=== PATIENT | female | born 1930 | race Caucasian/White ===

== ENCOUNTER 2016-11-06 12:13 | Observation (INO) | payer MEDICARE ==
--- NOTE | ~2016-11-06 | HP ---
History And Physical [id number] [place]. [address] NAME: ANAYELI AMOS : 34 STATUS : ADM Marilee PAT#: [id number] AGE: 85 ADM/REG DATE : 11/06/16 MR#: [id number] REPORT SERV DATE: 11/07/16 DICTATED BY: LITZY KINCAID DATE: 11/07/16 REPORT STATUS : Draft TRANSCRIBED BY: MODL DATE: 11/07/16 DATE OF ADMISSION: 11/06/2016 PRIMARY CONTRACT FORESTER: Dr. Oneil at [place], [place]. CHIEF COMPLAINT: Dizziness, feeling not well, and hypotension. HISTORY OF PRESENT ILLNESS: This is an 85-year-old female with history of paroxysmal atrial fibrillation, and hospitalizations in June of last year for a fall sustaining a cephalohematoma. The patient is on chronic Eliquis therapy, which was held at that time, but has been continued in the outpatient setting. The patient lives at home with a vet assistant, who comes 10 to 12 hours per day. This vet assistant is at the bedside, and helps provide some of the history of present illness. She went to check on the patient yesterday morning, waking her up from bed, and the patient complained of feeling "very dizzy." The caregiver checked her blood pressure and heart rate, and her blood pressure was low, and heart rate was high. She also states the patient was nauseated and diaphoretic, and states that "something just does not feel right." There was no chest pain or significant palpitations. The caregiver called the [facility] which was supposed to come later that day, and they recommended that she call EMS. EMS was called and they provided IV fluids en route to the hospital. Her blood pressure on the EMS arrival was 108/60, and heart rate of 76, atrial fibrillation. Fluid bolus was continued in the emergency department and the patient was started on some IV Cardizem, although this has been discontinued as the patient's heart rate has been in the 70s, atrial fibrillation. She was admitted then to our Atrial Fibrillation Observation Unit overnight. The patient's caregiver reports no other falls since June. The patient has reportedly been under the care of a Dr. Oneil in [place], [place]. Although, the patient's nephew who is her medical Power Of Head Mva Reactor Operator has expressed that he would like the patient to be established with a celery wrapper here in [place]. The patient had been on a beta-haley at the time of admission in June, but this has been discontinued. The caregiver at the bedside is unsure why, but we can presume it is from her dizziness or perhaps some bradycardia. The patient's caregiver states absolute compliance with the patient's Eliquis. The patient's recent medical history is also significant for an angioplasty to the right lower extremity with Dr. Krueger at [place] a couple weeks ago. The patient has significant leg and foot pain with ambulation and this prevents her from getting around a lot. She also is under the care of Home Health for wounds to both lower extremities, to the right heel and left lateral ankle. The patient denies history of sleep apnea, diabetes, and previous WI. History is questionable for a CVA sustained during this fall in June of 2016, presumably is some extracranial hemorrhage involved. The patient has had memory loss since that time reportedly by the caregiver. The patient denies any recent chest pains. PAST MEDICAL HISTORY: 1. Paroxysmal atrial fibrillation, reported last occurrence was in the summer, perhaps in History And Physical [address] [address] NAME: ANAYELI AMOS : 32 STATUS : ADM Marilee PAT#: [id number] AGE: 85 ADM/REG DATE : 11/06/16 MR#: [id number] REPORT SERV DATE: 11/07/16 DICTATED BY: LITZY KINCAID DATE: 11/07/16 REPORT STATUS : Draft TRANSCRIBED BY: MODMartín DATE: 11/07/162015, although this is unclear. The patient has had one cardioversion in the past. 2. Hypothyroidism, on supplementation. 3. Hypertension, on the Dyazide diuretic as well as amlodipine and losartan. 4. GERD. 5. Fall with cephalohematoma and some anemia, 06/2016. 6. Peripheral vascular disease status post right lower extremity angioplasty under the care of Dr. Krueger couple of weeks ago. 7. Dementia. PAST SURGICAL HISTORY: 1. Tonsillectomy at age 9. 2. Hysterectomy. HOME MEDICATIONS: Amlodipine 5 q.h.s., Eliquis 5 b.i.d. [place] 5/325 q.4 p.r.n. pain, Keppra 500 b.i.d., Hyzaar 100/12.5 every morning, potassium chloride 20 mEq every morning, Soft lens drop b.i.d. p.r.n., and Lucile Thyroid 30 mg every morning. ALLERGIES: NO KNOWN DRUG ALLERGIES. SOCIAL HISTORY: The patient is single, no children. She lives alone, but has Home Health visit frequently and a caregiver who stays with her 10 to 12 hours per day. She denies history of smoking. She does consume approximately 4 ounces of wine most days of the week. She uses a cane and walker as needed. The patient reportedly has a living will and has designated her nephew as the medical Power Of Head Mva Reactor Operator. FAMILY HISTORY: Reports vascular disease in her mother's history. No premature deaths in the first degree relatives from cardiovascular disease. REVIEW OF SYSTEMS: Negative except as indicated above. PHYSICAL EXAMINATION: VITAL SIGNS: Blood pressure 144/83, heart rate 70s to 80s, temperature 97.6, and pulse oximetry 99% room air. BMI of 19.2. GENERAL: Well-developed, well-nourished, in no acute distress HEENT: Anicteric. Normal EOM. Head normocephalic. PERRLA, no xanthelasma. NECK: Supple. No JVD. Carotids normal without bruits. LUNGS: Clear to auscultation bilaterally anterior and posterior. Respirations even and unlabored. CARDIOVASCULAR: S1, S2. Irregularly irregular rate and rhythm. No murmurs, rubs, or gallops appreciated. PMI nondisplaced. ABDOMEN: Normal bowel sounds. Soft and nontender to palpation. No masses or organomegaly. SKIN: Warm and dry. Normal turgor. No pallor or cyanosis. MUSCULOSKELETAL: Moving all extremities x4. Normal muscle strength. NEUROLOGIC: The patient is alert, pleasant, and cooperative. No focal deficits noted while the patient is in bed. The patient is disoriented to the day of the week as well as place, but is easily reoriented. History And Physical [address] [place]. [address] NAME: ANAYELI AMOS : 34 STATUS : ADM Marilee PAT#: [id number] AGE: 85 ADM/REG DATE : 11/06/16 MR#: [id number] REPORT SERV DATE: 11/07/16 DICTATED BY: LITZY KINCAID DATE: 11/07/16 REPORT STATUS : Draft TRANSCRIBED BY: VIN DATE: 11/07/16 EXTREMITIES: No edema to the bilateral lower extremities. There is a Kerlix wrap to the right foot with a reported ulcer to heel. There is a small 2 x 2 dressing over the left lateral malleolus. The dressing is clean, dry, and intact. There is some redness to the left great toe, no drainage. Left great toenail is discolored. Pedal pulses are palpable about 1+ bilateral. No clubbing or cyanosis to the distal extremities. There is some tenderness to palpation to both feet. LABORATORY DATA: White blood count 4.3, hemoglobin 12.0, and hematocrit 35.8. INR 1.4. Sodium 142, potassium 3.7, BUN 10, creatinine 0.68, and magnesium 1.5. Troponin is less than 0.02 x2. TSH is 1.5. Free T4 of 0.68. Chest x-ray shows no acute cardiopulmonary processes. EKGs interpreted by myself indicate atrial fibrillation, on three separate EKGs in the rate of 70s. Nonspecific ST and T-wave abnormalities. ASSESSMENT AND PLAN: 1. Paroxysmal atrial fibrillation in this 85-year-old female, who has a CHADS2-VASc score of at least 5. She is on chronic Eliquis therapy and states compliance. This is her reported first event since perhaps last summer when she did have a cardioversion at that time. There is some mention of intolerance to beta-haley therapy, presumably from the patient's history of dizziness, and perhaps some bradycardia. We do not have any other cardiovascular studies on this patient. She wishes to be established with a local celery wrapper here in [place]. She has been seen by Dr. Hamilton with the [facility], and we will plan for cardioversion later this morning. Risks and benefits have been discussed with the patient by him and the patient agrees to proceed. We will then discharge the patient home following buddhism of sinus rhythm, if no deviation from the recovery protocol. We will have the patient come back to the hospital for an outpatient echocardiogram and then see Dr. Hamilton in a few weeks. Antiarrhythmic strategy can be determined at that time if necessary. 2. Hypomagnesemia. This is likely secondary to the patient's thiazide diuretic. We will provide prescription for magnesium oxide 400 mg daily upon discharge. 3. Peripheral arterial disease with recent right lower extremity angioplasty. The patient is to have followup ultrasound with Dr. Krueger. This was supposed to be yesterday, we will ask the patient to reschedule. 4. Hypertension. Blood pressure is actually on the low side on admission, but now systolic blood pressure of 130s to 140s. Continue home medications. Dementia reported by the caregiver and also noticed following the interaction with the patient. The patient appears to have adequate home support. LEIGH ANN/VIN Litzy Kincaid NP / [id number] CC: History And Physical [address] [address] NAME: ANAYELI AMOS : 34 STATUS : ADM Marilee PAT#: [id number] AGE: 85 ADM/REG DATE : 11/06/16 MR#: [id number] REPORT SERV DATE: 11/07/16 DICTATED BY: LITZY KINCAID DATE: 11/07/16 REPORT STATUS : Draft TRANSCRIBED BY: VIN DATE: 11/07/16 Reba Benitez, MSN, CHIEF SOLUTION ARCHITECT-BC Reina Mckee
--- NOTE | ~2016-11-06 | OP ---
Record Of Operation [facility] [address] [place] [address] NAME: ANAYELI SHAVER : 34 STATUS : DIS Marilee PAT#: [id number] AGE: 85 ADM/REG DATE : 11/06/16 MR#: [id number] REPORT SERV DATE: 11/08/16 DICTATED BY: JON HAMILTON DATE: 11/07/16 REPORT STATUS : Draft TRANSCRIBED BY: MODL DATE: 11/07/16 DATE OF PROCEDURE: 11/07/2016 CARDIOVERSION REPORT INDICATIONS: Symptomatic paroxysmal atrial fibrillation. PROCEDURE: Elective external cardioversion. DESCRIPTION: Ms. Shaver was brought to the short-stay unit at [facility] in a fasting state. The patient was properly identified and informed consent obtained. The patient and her caregiver report absolute compliance with their Eliquis. The patient received propofol for sedation. When she was deemed to be hemodynamically stable and adequately sedated, a single 300 joule biphasic energy delivery was performed which successfully cardioverted the patient to sinus rhythm. IMPRESSION: Successful cardioversion to sinus rhythm. DAKOTA/VIN Jon Hamilton M.D. / [id number] CC: Reba Benitez, MSN, CONTROL OPERATOR FLOW COAT-BC JACQUELIN LINO II
[~2016-11-06 12:13] MED LIST: ARMOUR THYRO60 MG PO; ELIQUIS 5 MG TAB5 MG PO; ESTRACE0.5 MG PO; HYZAAR1 TAB PO; LOP50 PO; PRILO PO; TEARS PLUS OPH; THERGRANM PO; ZYRTEC ALLGY10 MG PO
[2016-11-06 14:30] LABS: BASOPHILS 0.2 %; BASOPHILS ABSOLUTE 0.01 10/3/uL (0.0-0.16); EOSINOPHILS 0.7 %; EOSINOPHILS ABSOLUTE 0.03 10/3/uL (0.0-0.53); ER CBC TAT 0 Hrs 08 Mins; HEMATOCRIT 35.8 % (36.0-48.0); IMMATURE GRANULOCYTES 0.2 %; IMMATURE GRANULOCYTES ABSOLUTE 0.01 10/3/uL (0.0-0.11); LYMPHOCYTES 17.3 %; LYMPHOCYTES ABSOLUTE 0.74 10/3/uL (0.67-4.30); MANUAL DIFF NO %; MEAN CORPUS HGB CONC 33.5 g/dL (32.0-36.0); MEAN CORPUSCULAR VOLUME 86.5 fL (80-100); MEAN PLATELET VOLUME 10.4 fL (9.2-13.0); MONOCYTES 7.9 %; MONOCYTES ABSOLUTE 0.34 10/3/uL (0.21-1.20); NEUTROPHILS 73.7 %; NEUTROPHILS ABSOLUTE 3.15 10/3/uL (2.02-8.40); PLATELET COUNT 225 10/3/uL (150-400); RBC DISTRIBUTION WIDTH 15.2 % (12.0-16.0); RED CELL COUNT 4.14 10/6/uL (4.0-5.6); WHITE BLOOD CELLS 4.3 10/3/uL (4.5-10.5)
[2016-11-06 14:36] LABS: INTERNATIONAL NORMAL RATI 1.4 UNITS (-); PROTIME (NOT ORD) 17.1 SEC (12.0-14.5)
[2016-11-06 14:46] LABS: BUN (BLOOD UREA NITROGEN) 10 MG/DL (6-23); CALCIUM, SERUM 8.7 MG/DL (8.5-10.4); CHEST PAIN PROFILE TAT 0 Hrs 24 Mins; CHLORIDE, SERUM 108 MMOL/L (96-112); CO2 (CARBON DIOXIDE) 25 MMOL/L (24-34); CREATININE 0.68 MG/DL (0.55-1.02); GFR AFRICAN AMERICAN 94 ML/MIN (>=60); GFR NON AFRICAN AMERICAN 81 ML/MIN (>=60); GLUCOSE, SERUM 83 MG/DL (60-99); POTASSIUM, SERUM 3.7 MMOL/L (3.5-5.3); SODIUM, SERUM 142 MMOL/L (135-148); TROPONIN I <0.02 NG/ML (<0.05)
[2016-11-06] MEDS ORDERED: KEPPRA500 PO (16:19)
[2016-11-06] MEDS ORDERED: NORV5 PO (16:19)
[2016-11-06] MEDS ORDERED: ELIQUIS 5 MG TAB5 MG PO (16:19)
[2016-11-06] MEDS ORDERED: HYZAAR1 TAB PO (16:20)
[2016-11-06] MEDS ORDERED: NORCO1 TA1 PO (16:21)
[2016-11-06] MEDS ORDERED: ARMOUR THYRO30 MG PO (16:21)
[2016-11-06] MEDS ORDERED: KLOR-CON M2020 MEQ PO (16:21)
[2016-11-06] MEDS ORDERED: REFRES1 OPH (16:23)
[2016-11-06 18:55] LABS: ALKALINE PHOSPHATASE 57 U/L (45-117); DIRECT BILIRUBIN 0.1 MG/DL (0.0-0.4); FREE T4 0.68 NG/DL (0.76-1.46); INDIRECT BILIRUBIN(NOT ORDER) 0.3 MG/DL (0.1-0.9); SGOT(AST) 29 U/L (5-40); SGPT(ALT) 20 U/L (5-65); TOTAL BILIRUBIN 0.4 MG/DL (0-1.2); TOTAL PROTEIN 6.8 G/DL (6.0-8.5)
[2016-11-07 09:30] LABS: BUN (BLOOD UREA NITROGEN) 9 MG/DL (6-23); CALCIUM, SERUM 9.5 MG/DL (8.5-10.4); CHLORIDE, SERUM 104 MMOL/L (96-112); CO2 (CARBON DIOXIDE) 24 MMOL/L (24-34); CREATININE 0.69 MG/DL (0.55-1.02); GFR AFRICAN AMERICAN 93 ML/MIN (>=60); GFR NON AFRICAN AMERICAN 81 ML/MIN (>=60); GLUCOSE, SERUM 87 MG/DL (60-99); POTASSIUM, SERUM 3.7 MMOL/L (3.5-5.3); SODIUM, SERUM 141 MMOL/L (135-148)
[2016-11-07 13:52] LABS: BASOPHILS 0.3 %; BASOPHILS ABSOLUTE 0.01 10/3/uL (0.0-0.16); EOSINOPHILS 2.1 %; EOSINOPHILS ABSOLUTE 0.07 10/3/uL (0.0-0.53); HEMOGLOBIN 13.8 g/dL (12.0-16.0); IMMATURE GRANULOCYTES 0.3 %; IMMATURE GRANULOCYTES ABSOLUTE 0.01 10/3/uL (0.0-0.11); LYMPHOCYTES 18.5 %; LYMPHOCYTES ABSOLUTE 0.61 10/3/uL (0.67-4.30); MEAN CORPUS HGB CONC 33.7 g/dL (32.0-36.0); MEAN CORPUSCULAR HEMOGLOB 29.2 pg (26.0-34.0); MEAN CORPUSCULAR VOLUME 86.9 fL (80-100); MEAN PLATELET VOLUME 11.2 fL (9.2-13.0); MONOCYTES 7.9 %; MONOCYTES ABSOLUTE 0.26 10/3/uL (0.21-1.20); NEUTROPHILS 70.9 %; NEUTROPHILS ABSOLUTE 2.33 10/3/uL (2.02-8.40); PLATELET COUNT 232 10/3/uL (150-400); RBC DISTRIBUTION WIDTH 15.3 % (12.0-16.0); RED CELL COUNT 4.72 10/6/uL (4.0-5.6); WHITE BLOOD CELLS 3.3 10/3/uL (4.5-10.5)
[2016-11-07 13:53] LABS: MANUAL DIFF NO %
[2016-11-07] MEDS ORDERED: MAGOX4 PO (14:07)
== END 2016-11-07 15:07 | disposition home or self-care (01) ==
LOC: ER 12:13 → CDU1 16:36 → CDU2 17:35
PROVIDERS: Clinical Nurse Specialist; Nurse Practitioner
DX: I48.0 Paroxysmal atrial fibrillation (principal); I95.9 Hypotension, unspecified; E03.9 Hypothyroidism, unspecified; I10 Essential (primary) hypertension; K21.9 Gastro-esophageal reflux disease without esophagitis; I73.9 Peripheral vascular disease, unspecified; F03.90 Unspecified dementia, unspecified severity, without behavioral disturbance, psychotic disturbance, mood disturbance, and anxiety; Z90.710 Acquired absence of both cervix and uterus; Z98.890 Other specified postprocedural states; Z79.899 Other long term (current) drug therapy; E83.42 Hypomagnesemia; Z88.8 Allergy status to other drugs, medicaments and biological substances
CPT/HCPCS: 71020; 80048; 80076; 83735; 83880; 84439; 84443; 84484; 85025; 85610; 85730; 92960; 93005; 96365; 96375; 99285; A9270-GY; G0378